=== PATIENT | female | born 1960 | race Two or more races ===

== ENCOUNTER 2016-12-11 01:00 | Emergency (ER) | payer BC, OTHER ==
[2016-12-11 02:14] VITALS: TEMP 98.1; BMI 31.5
--- NOTE | 2016-12-11 02:18 | EDPRACDOC ---
- General Information Chief Complaint: Abdominal Pain Stated Complaint: SHOB Time Seen by Provider: 12/11/16 01:14 Mode Of Arrival: Car Home Medications: Home Medications Hydrochlorothiazide 25 mg PO DAILY 02/25/15 Pregabalin [Lyrica] 150 mg PO TID 05/30/16 Enoxaparin Sodium [Lovenox] 80 mg SQ BID 06/15/16 Lidocaine/Prilocaine [Lidocaine-Prilocaine Cream] 30 gm TP DIR PRN 06/15/16 Lisinopril [Prinivil] 10 mg PO DAILY 06/15/16 Rosuvastatin Calcium [Crestor] 10 mg PO DAILY 06/15/16 Aspirin 325 mg PO DAILYWM #60 tablet 06/16/16 Insulin Glargine [Lantus Pen] 46 units SQ HS #1 pen 06/16/16 Insulin Lispro [Humalog] 13 units SQ .TID BEFORE MEALS #1 vial 06/16/16 MetFORMIN (Immediate Release) [GLUCOPHAGE Immed Release] 1,000 mg PO BID(TANYA) # 60 tablet 06/16/16 Metoprolol Tartrate [Lopressor] 25 mg PO BID #60 tablet 06/16/16 POTASSIUM CHLORIDE Tablet [K-DUR 20 mEq Tablet*] 40 meq PO DAILYWM #60 tab.er.prt 06/16/16 Furosemide [Lasix] 40 mg PO DAILY #10 tablet 12/11/16 POTASSIUM CHLORIDE Tablet [Klor-Con M20] 20 meq PO DAILY #30 tab 12/11/16 Allergies/Adverse Reactions: Allergies Allergy/AdvReac Type Severity Reaction Status Date / Time No Known Allergies Allergy Verified 12/11/16 02:19 - History 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 SIGNIFICANT SHORTNESS OF BREATH 5 6 DAYS BUT ABRUPTLY WORSENED THIS EVENING. HER COUGH HAS BEEN NONPRODUCTIVE SHE HAS HAD NO FEVER CHILLS NO WEIGHT GAIN NO SWELLING IN HER LEGS. SOME VAGUE CHEST PAIN SUBSTERNAL WELL. SHORTNESS OF BREATH IS AGGRAVATED BY LYING DOWN FLAT AND SHE IS AWAKENING AT NIGHT OUT BREATH WELL. SHE DOES NOT WEIGH HERSELF. HAS HISTORY OF PULMONARY EMBOLISM WAS TAKEN OFF ALL OF ANTICOAGULANTS LAST MONTH. HAS HISTORY OF LYMPHOMA LAST CHEMOTHERAPY 1 YEAR AGO CURRENTLY IN REMISSION. : No ED Past Medical History - History Reviewed Yes Nurses notes reviewed and agree except as marked - Patient Medical History Cardiac History: Reports: Coronary Artery Disease, Hypertension, Hypercholesterolemia Respiratory History: Reports: Pulmonary Embolism Musculoskeletal History: Reports: Arthritis Psychological History: Reports: Anxiety Systemic History: Reports: Cancer (HODGKIN'S LYMPHOMA WITH NODULAR SCLEROSIS), Diabetes, Hypothyroidism Additional Past Medical History: NEUROPATHY (MRIS HAVE BEEN DONE WHICH RULED OUT PATHOLOGY). THOUGHT TO BE DUE TO DIABETES AND DECONDITIONING. Surgical History: Reports: Other (CSXN, PORT PLACEMENT, BONE MARROW TRANSPLANT, LYMPH NODE BX). Denies: Hysterectomy - Family Medical History Reports: Hypertension, Diabetes - Social Medical History Smoking Status: Never smoker ETOH: None Substance Abuse: None Lives With: Family Lives In: Home EDM Review of Systems - Review of Systems ROS Negative Except as Marked: Yes All systems reviewed and were negative except as marked - Physical Exam Constitutional: Alert, Restless, Other Oriented to: Time, Person, Place Last recorded Vital Signs: Last Vital Signs Temp 98.1 F 12/11/16 01:05 Pulse 88 12/11/16 05:20 Resp 18 12/11/16 05:20 BP 164/84 12/11/16 05:20 Pulse Ox 96 12/11/16 05:20 Oxygen Pulse Oxygen Saturation 96 O2 Device Room Air Oxygen Flow Rate Fraction of Inspired Oxygen ( FIO2) - HEENT Head: Normal Oropharynx: Normal. negative: Membranes Dry Nose: No Symptoms Reported Neck: Normal. negative: Edema, Limited ROM, Lymphadenopathy, Meningeal Signs - Respiratory/Cardiovascular Respiratory: Diminished, Tachypnea. negative: Accessory Muscle Use, Rales, Retractions, Rhonchi, Wheezes Cardiovascular: Tachycardia - GI Auscultation: Normal Palpation: Normal Tenderness: Non tender Banegas's Sign: Negative - Bladder: Normal - Integumentary Skin: Normal - Neurologic Memory Impaired: Normal Motor Function: Normal Mood Description: Anxious Thought: Coherent Perception: Normal ED Procedures - Ultrasound: Heart / Aorta Indication: Suspected Effusion Cardiac Findings: Normal, Other (LEFT VENTRICULAR CONTRACTILITY APPEARS TO BE GROSSLY DECREASED.). negative: Pericardial Fluid, Free Fluid, RV Diastolic Collapse - Re-evaluation Re-evaluation 1 Re-evaluation Time: 03:55 (AMBULATING WITHOUT DIFFICULTY, MILD TO MOD DYSPNEA) Re-evaluation 3 Re-evaluation Time: 05:49 (PATIENT IS FEELING MUCH BETTER.) NEW ONSET CONGESTIVE HEART FAILURE. ASSOCIATED WITH MARKED HYPERTENSION. PATIENT CARE OFFERED AND RECOMMENDED TO PATIENT AND FAMILY. HOWEVER THEY HAD JUST RETURNED FROM [place] THEY ARE FATIGUED IN AND HE JUST WANTED GO HOME WITH THIS TIME. PATIENT HAS SCHEDULED ECHO TODAY AT [facility]. THIS IS HAVE ROUTINE FOLLOW- UP FOR PERICARDIAL EFFUSION. SHE ALSO HAS A PRIMARY CARE PHYSICIAN (WHICH IS IN [facility]) WHICH SHE WILL BE ABLE TO SEE IN THE NEXT 1-2 DAYS WELL. PATIENT REQUEST OUTPATIENT MANAGEMENT SHE IS VERY COMPLIANT AND HAS EXCELLENT RESOURCES AND SUPPORT OUTPATIENT REGIMEN APPEARS REASONABLE. - Results 12/11/16 02:00 12/11/16 02:00 WBC 5.2 xk/uL (3.8-10.8) 12/11/16 02:00 RBC 4.19 xM/uL (4.20-5.40) L 12/11/16 02:00 Hgb 11.0 g/dL (12.0-16.0) L 12/11/16 02:00 Hct 34.5 % (36-47) L 12/11/16 02:00 MCV 82 fL (81-99) 12/11/16 02:00 MCH 26.3 pg (27-32) L 12/11/16 02:00 MCHC 32.0 g/dl (33-36) L 12/11/16 02:00 RDW 18.6 % (11.5-14.5) H 12/11/16 02:00 Plt Count 233 xk/uL (130-400) 12/11/16 02:00 MPV 8.0 fL (7.4-10.4) 12/11/16 02:00 Neut % (Auto) 67.2 % (45-76) 12/11/16 02:00 Lymph % (Auto) 21.7 % (17-44) 12/11/16 02:00 [place] % (Auto) 6.6 % (3-10) 12/11/16 02:00 Eos % (Auto) 3.4 % (0-5) 12/11/16 02:00 Baso % (Auto) 1.1 % (0-2) 12/11/16 02:00 Absolute Neuts (auto) 3.48 xk/uL (1.7-8.2) 12/11/16 02:00 Absolute Lymphs (auto) 1.09 xk/uL (0.65-4.75) 12/11/16 02:00 PT 10.1 SEC (9.2-11.2) 12/11/16 02:00 INR 1.0 12/11/16 02:00 APTT 21.9 SEC (22-35) L 12/11/16 02:00 D-Dimer Quant (PE/DVT) 691 ng/mL (<500) H 12/11/16 02:00 Sodium 140 mEq/L (137-146) 12/11/16 02:00 Potassium 3.6 mEq/L (3.5-5.1) 12/11/16 02:00 Chloride 106 mEq/L (98-107) 12/11/16 02:00 Carbon Dioxide 22 mMOL/L (22-33) 12/11/16 02:00 Anion Gap 16 mEq/L (8-16) 12/11/16 02:00 BUN 16 MG/DL (7-17) 12/11/16 02:00 Creatinine 0.60 MG/DL (0.52-1.04) 12/11/16 02:00 Estimated GFR (MDRD) > 60 mL/min (>=60) 12/11/16 02:00 Glucose 166 MG/DL (70-99) H 12/11/16 02:00 Calculated Osmolality 274 MOs/Kg (270-290) 12/11/16 02:00 Lactic Acid 2.0 mEq/L (0.7-2.1) 12/11/16 02:00 Calcium 9.2 MG/DL (8.4-10.2) 12/11/16 02:00 Corrected Calcium 9.3 MG/DL (8.4-10.2) 12/11/16 02:00 Total Bilirubin 0.7 MG/DL (0.2-1.3) 12/11/16 02:00 AST 27 IU/L (14-36) 12/11/16 02:00 ALT 35 IU/L (9-52) 12/11/16 02:00 Alkaline Phosphatase 111 IU/L (38-126) 12/11/16 02:00 Troponin I < 0.01 ng/mL (<.04) 12/11/16 02:00 Edb-V-Dpbcjshwjdr Pept 891 pg/mL (0-900) 12/11/16 02:00 Total Protein 7.3 G/DL (6.3-8.2) 12/11/16 02:00 Albumin 3.9 G/DL (3.5-5.0) 12/11/16 02:00 Lipase 67 U/L (23-300) 12/11/16 02:00 Urine Color Pale yellow 12/11/16 01:20 Urine Clarity Clear 12/11/16 01:20 Urine pH 5.0 (5.0-8.0) 12/11/16 01:20 Ur Specific Cost 1.005 (1.003-1.035) 12/11/16 01:20 Urine Protein Neg (NEG/TRACE) 12/11/16 01:20 Urine Glucose (UA) Neg (NEGATIVE) 12/11/16 01:20 Urine Ketones Neg (NEGATIVE) 12/11/16 01:20 Urine Occult Blood Neg (NEG/TRACE) 12/11/16 01:20 Urine Nitrite Neg (NEGATIVE) 12/11/16 01:20 Urine Bilirubin Neg (NEGATIVE) 12/11/16 01:20 Urine Urobilinogen <2.0 MG/DL (0-1) 12/11/16 01:20 Ur Leukocyte Esterase Trace (NEGATIVE) H 12/11/16 01:20 Urine WBC 5-10 (0-5) H 12/11/16 01:20 Ur Epithelial Cells 2+ 12/11/16 01:20 Urine Bacteria Few (NEG/FEW) 12/11/16 01:20 Lab Results 12/11/16 12/11/16 12/11/16 02:00 02:00 02:00 WBC 5.2 RBC 4.19 L Hgb 11.0 L Hct 34.5 L MCV 82 MCH 26.3 L MCHC 32.0 L RDW 18.6 H Plt Count 233 MPV 8.0 Neut % (Auto) 67.2 Lymph % (Auto) 21.7 [place] % (Auto) 6.6 Eos % (Auto) 3.4 Baso % (Auto) 1.1 Absolute Neuts (auto) 3.48 Absolute Lymphs (auto) 1.09 PT 10.1 INR 1.0 APTT 21.9 L D-Dimer Quant (PE/DVT) 691 H Sodium Potassium Chloride Carbon Dioxide Anion Gap BUN Creatinine Estimated GFR (MDRD) Glucose Calculated Osmolality Lactic Acid Calcium Corrected Calcium Total Bilirubin AST ALT Alkaline Phosphatase Troponin I Vil-I-Mfumsacdftc Pept Total Protein Albumin Lipase Urine Color Urine Clarity Urine pH Ur Specific Cost Urine Protein Urine Glucose (UA) Urine Ketones Urine Occult Blood Urine Nitrite Urine Bilirubin Urine Urobilinogen Ur Leukocyte Esterase Urine WBC Ur Epithelial Cells Urine Bacteria 12/11/16 12/11/16 12/11/16 02:00 02:00 01:20 WBC RBC Hgb Hct MCV MCH MCHC RDW Plt Count MPV Neut % (Auto) Lymph % (Auto) [place] % (Auto) Eos % (Auto) Baso % (Auto) Absolute Neuts (auto) Absolute Lymphs (auto) PT INR APTT D-Dimer Quant (PE/DVT) Sodium 140 Potassium 3.6 Chloride 106 Carbon Dioxide 22 Anion Gap 16 BUN 16 Creatinine 0.60 Estimated GFR (MDRD) > 60 Glucose 166 H Calculated Osmolality 274 Lactic Acid 2.0 Calcium 9.2 Corrected Calcium 9.3 Total Bilirubin 0.7 AST 27 ALT 35 Alkaline Phosphatase 111 Troponin I < 0.01 Aho-X-Hjtpwmhujhk Pept 891 Total Protein 7.3 Albumin 3.9 Lipase 67 Urine Color Pale yellow Urine Clarity Clear Urine pH 5.0 Ur Specific Cost 1.005 Urine Protein Neg Urine Glucose (UA) Neg Urine Ketones Neg Urine Occult Blood Neg Urine Nitrite Neg Urine Bilirubin Neg Urine Urobilinogen <2.0 Ur Leukocyte Esterase Trace H Urine WBC 5-10 H Ur Epithelial Cells 2+ Urine Bacteria Few - EKG EKG #1 EKG Time: 02:25 -: Yes EKG interpreted by me Rate: bpm: 120 [place]: Normal Rhythm: ST Block: None Hypertrophy: None ST: Nonsp - Departure Condition: Stable Final Diagnosis: Acute decompensated heart failure, Hypertensive emergency Instructions: *Heart Failure (Activity, Diet, Worsening Symptoms, Weight Monitoring)(ED), Acute Abdominal Pain (ED), Chronic Hypertension (ED) Education/Counseling Given To: Patient, Family Member Education/Counseling Given Regarding: Diagnosis, Treatment, Prognosis Referrals: None,No Provider [Primary Care Provider] - One Week Prescriptions: Furosemide [Lasix] 40 mg PO DAILY #10 tablet POTASSIUM CHLORIDE Tablet [Klor-Con M20] 20 meq PO DAILY #30 tab Additional Instructions: HAVE ECHOCARDIOGRAM PERFORMED AT [facility] TODAY SCHEDULED. MAKE CERTAIN TO SEE A GENERAL ADJUSTER OR YOUR PRIMARY CARE DOCTOR IN THE NEXT 4-5 DAYS. WEIGHT YOURSELF EVERY DAY 1ST THING IN THE MORNING RECORD THIS IN A JOURNAL. TAKE THIS TO YOUR PROVIDER/DOCTOR'S APPOINTMENT.
[2016-12-11 02:28] LABS: AUTOMATED BASOPHIL 1.1 % (0-2); AUTOMATED EOSINOPHIL 3.4 % (0-5); AUTOMATED LYMPH 21.7 % (17-44); AUTOMATED MONOCYTE 6.6 % (3-10); AUTOMATED NEUTROPHIL 67.2 % (45-76)
[2016-12-11] MEDS ORDERED: FENTANYL 100 MCG/2 ML VIAL IV STA (02:28)
[2016-12-11 02:33] LABS: PARTIAL THROMB. TIME 21.9 SEC (22-35)
[2016-12-11 02:42] LABS: BLOOD UREA NITROGEN 16 MG/DL (7-17); CALC CORRECTED 9.3 MG/DL (8.4-10.2); CALCIUM 9.2 MG/DL (8.4-10.2); CALCULATED OSMOLALITY 274 MOs/Kg (270-290); CHLORIDE 106 mEq/L (98-107); GLUCOSE 166 MG/DL (70-99); SODIUM LEVEL 140 mEq/L (137-146); TOTAL PROTEIN 7.3 G/DL (6.3-8.2)
[2016-12-11 03:12] LABS: LEUKOCYTES/URINE TRACE (NEGATIVE); NITRITE/URINE NEG (NEGATIVE); URINE OCCULT BLOOD NEG (NEG/TRACE)
[2016-12-11] MEDS ORDERED: NITROGLYCERINE 2 % OINTMENT PACK TOP ONE (03:19)
--- NOTE | 2016-12-11 03:23 | DIRPT ---
CLINICAL DATA: Chest pain, presumed cardiac. Cough and shortness of breath for 5 days. EXAM: PORTABLE CHEST 1 VIEW COMPARISON: Radiograph 06/15/2016, CT 05/30/2016 FINDINGS: Evaluation limited due to technique with underpenetration. Left chest port remains in place, tip in the SVC. Development of bilateral alveolar opacities most consistent pulmonary edema. Cardiomegaly is unchanged. No evidence of large pleural effusion, pneumothorax or focal airspace disease. Surgical clips in the right axilla. IMPRESSION: New pulmonary edema. Cardiomegaly is stable. Consider PA and lateral views when patient is able. Electronically Signed By: Diane Paulino M.D. On: 12/11/2016 03:20
[2016-12-11] MEDS ORDERED: FUROSEMIDE 40 MG/4 ML VIAL IV ONE (04:08)
[2016-12-11 06:28] VITALS: BP 137/79; PULSE 68
== END 2016-12-11 06:31 | disposition home or self-care (01) ==
LOC: ED 01:00
DX: I50.9 Heart failure, unspecified (principal); I16.1 Hypertensive emergency; I10 Essential (primary) hypertension
CPT/HCPCS: 36415; 71010; 80053; 81001; 83605; 83690; 83880; 84484; 85025; 85379; 85610; 85730; 93005; 96374; 96375; 99285; J1642; J1940; J3010; J3490

== ENCOUNTER 2016-12-15 07:46 | Inpatient (IN) | payer BC ==
--- NOTE | 2016-12-15 08:16 | EDPRACDOC ---
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 Mode Of Arrival: Ambulance Home Medications: Home Medications Hydrochlorothiazide 25 mg PO DAILY 02/25/15 Pregabalin [Lyrica] 150 mg PO TID 05/30/16 Enoxaparin Sodium [Lovenox] 80 mg SQ BID 06/15/16 Lidocaine/Prilocaine [Lidocaine-Prilocaine Cream] 30 gm TP DIR PRN 06/15/16 Lisinopril [Prinivil] 10 mg PO DAILY 06/15/16 Rosuvastatin Calcium [Crestor] 10 mg PO DAILY 06/15/16 Aspirin 325 mg PO DAILYWM #60 tablet 06/16/16 Insulin Glargine [Lantus Pen] 46 units SQ HS #1 pen 06/16/16 Insulin Lispro [Humalog] 13 units SQ .TID BEFORE MEALS #1 vial 06/16/16 MetFORMIN (Immediate Release) [GLUCOPHAGE Immed Release] 1,000 mg PO BID(TANYA) # 60 tablet 06/16/16 Metoprolol Tartrate [Lopressor] 25 mg PO BID #60 tablet 06/16/16 POTASSIUM CHLORIDE Tablet [K-DUR 20 mEq Tablet*] 40 meq PO DAILYWM #60 tab.er.prt 06/16/16 Furosemide [Lasix] 40 mg PO DAILY #10 tablet 12/11/16 POTASSIUM CHLORIDE Tablet [Klor-Con M20] 20 meq PO DAILY #30 tab 12/11/16 Allergies/Adverse Reactions: Allergies Allergy/AdvReac Type Severity Reaction Status Date / Time No Known Allergies Allergy Verified 12/11/16 02:19 - Treatment Prior to ED Arrival 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 Denies: Depression Systemic History: Reports: Cancer (HODGKIN'S LYMPHOMA WITH NODULAR SCLEROSIS), Diabetes, Hypothyroidism Additional Past Medical History: NEUROPATHY (MRIS HAVE BEEN DONE WHICH RULED OUT PATHOLOGY). THOUGHT TO BE DUE TO DIABETES AND DECONDITIONING. Surgical History: Reports: Other (CSXN, PORT PLACEMENT, BONE MARROW TRANSPLANT, LYMPH NODE BX). Denies: Hysterectomy - Family Medical History Reports: Hypertension, Diabetes - Social Medical History Smoking Status: Never smoker - Physical Exam Last recorded Vital Signs: Last Vital Signs Temp 98.1 F 12/15/16 07:53 Pulse 117 12/15/16 07:53 Resp 32 H 12/15/16 07:53 BP 168/96 12/15/16 07:53 Pulse Ox 89 L 12/15/16 07:53 Oxygen Pulse Oxygen Saturation 89 O2 Device Room Air Oxygen Flow Rate Fraction of Inspired Oxygen ( FIO2)
[2016-12-15 08:17] LABS: ABG Draw Site Left Radial; ABG Draw Tech SI; ALLEN'S TEST PASS; BEb 1.8 (+/- 2); TCO2 26.8 MMOL/L (23-27)
--- NOTE | 2016-12-15 08:20 | EDPRACDOC ---
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: Ambulance Home Medications: Home Medications Pregabalin [Lyrica] 150 mg PO TID 05/30/16 Lisinopril [Prinivil] 10 mg PO DAILY 06/15/16 Insulin Glargine [Lantus Pen] 46 units SQ HS #1 pen 06/16/16 Insulin Lispro [Humalog] 13 units SQ .TID BEFORE MEALS #1 vial 06/16/16 MetFORMIN (Immediate Release) [GLUCOPHAGE Immed Release] 1,000 mg PO BID(TANYA) # 60 tablet 06/16/16 Furosemide [Lasix] 40 mg PO DAILY #10 tablet 12/11/16 POTASSIUM CHLORIDE Tablet [Klor-Con M20] 20 meq PO DAILY #30 tab 12/11/16 Levothyroxine [Synthroid, Levoxyl] 75 mcg PO DAILY 12/15/16 Allergies/Adverse Reactions: Allergies Allergy/AdvReac Type Severity Reaction Status Date / Time No Known Allergies Allergy Verified 12/15/16 08:38 - History of Present Illness Onset: WEEKS HPI: 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 Shortness of Breath: Moderate Cough: Reports: Non-productive SOB Worsens with: Reports: Lying Flat, PND, [place], Orthopnea SOB Improves with: Reports: Sitting up Associated Signs and symptoms: Denies: Fever, Nasal Symptoms, Vomiting, Myalgia Other History: ECHO DONE AT [place] LAST WEEK TO ASSURE THAT PRIOR PERICARDIAL EFFUSION HAD RESOLVED. I SAW PATIENT APPROXIMATELY 4 DAYS AGO FOR SIMILAR SYMPTOMS NOT SEVERE THEY ARE CURRENTLY. PLACED HER ON LASIX AND POTASSIUM. SHE IS 1ST TO HAVE FOLLOW-UP IS UNCLEAR WHETHER SHE DID HAVE FOLLOW-UP HER NOT BUT TODAY SHE CLEARLY LOOKS WORSE THAN SHE DID AT THAT TIME. 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 Denies: Depression Systemic History: Reports: Cancer (HODGKIN'S LYMPHOMA WITH NODULAR SCLEROSIS), Diabetes, Hypothyroidism Additional Past Medical History: NEUROPATHY (MRIS HAVE BEEN DONE WHICH RULED OUT PATHOLOGY). THOUGHT TO BE DUE TO DIABETES AND DECONDITIONING. Surgical History: Reports: Other (CSXN, PORT PLACEMENT, BONE MARROW TRANSPLANT, LYMPH NODE BX). Denies: Hysterectomy - Family Medical History Reports: Hypertension, Diabetes - Social Medical History Smoking Status: Never smoker EDM Review of Systems - Review of Systems ROS Negative Except as Marked: Yes All systems reviewed and were negative except as marked - Physical Exam Constitutional: Alert, Restless Oriented to: Time, Person, Place Last recorded Vital Signs: Last Vital Signs Temp 98.1 F 12/15/16 07:53 Pulse 117 12/15/16 07:53 Resp 32 H 12/15/16 07:53 BP 168/96 12/15/16 07:53 Pulse Ox 89 L 12/15/16 07:53 Oxygen Pulse Oxygen Saturation 89 O2 Device Room Air Oxygen Flow Rate Fraction of Inspired Oxygen ( FIO2) - HEENT Head: Normal Eye Exam: Normal. negative: Pale Conjunctiva, Scleral Icterus Oropharynx: negative: Membranes Dry Nose: No Symptoms Reported Neck: Normal - Respiratory/Cardiovascular Respiratory: Accessory Muscle Use, Diminished, Tachypnea, Other (SITTING BOLT UPRIGHT) Cardiovascular: Tachycardia. negative: Diastolic murmur, Systolic murmur - GI Auscultation: Normal Palpation: Normal Tenderness: Non tender - Musculoskeletal Back: Normal Extremities: Pedal Edema (2+ BILATERAL LOWER EXTREMITIES TO THE LEVEL OF THE KNEE.). negative: Clubbing, Cyanosis - Integumentary Skin: Clammy - Neurologic Memory Impaired: Normal Mood Description: Anxious Thought: Coherent Perception: Normal ED SOB MDM - Results Result Diagrams: 12/15/16 08:39 12/15/16 08:39 Results: Puncture Site Left radial 12/15/16 08:10 pH 7.450 pH UNITS (7.35-7.45) 12/15/16 08:10 pCO2 37.0 mmHg (35-45) 12/15/16 08:10 pO2 59.0 mmHg (80-100) L 12/15/16 08:10 HCO3 25.7 MMOL/L (22-26) 12/15/16 08:10 Total CO2 26.8 MMOL/L (23-27) 12/15/16 08:10 Base Excess 1.8 (+/- 2) 12/15/16 08:10 FiO2 % 21% 12/15/16 08:10 Specimen Drawn By Si 12/15/16 08:10 Lab Results 12/15/16 08:10 Puncture Site Left radial pH 7.450 pCO2 37.0 pO2 59.0 L HCO3 25.7 Total CO2 26.8 Base Excess 1.8 FiO2 % 21% Specimen Drawn By Si - EKG EKG #1 EKG Time: 08:10 -: Yes EKG interpreted by me Rate: bpm: 112 [place]: Normal Rhythm: ST Block: None Hypertrophy: None ST: Nonsp Comparison: 12/11/16 (NO SIGNIF CHANGE) - Diagnostic Imaging Chest Image interpreted by: Radiologist Diagnostic Imaging Comments: Patient Name: NENA PARIKH LOC: ED : 1960 AGE: 56 Order Date:12/15/16 Date of Service: Report # [id number] Ord Physician: Rebecca Hernandez MD Exam # [id number] Emergency Physician: Rebecca Hernandez MD Exam(s): [id number] RAD/DG CHEST PORTABLE CLINICAL DATA: Respiratory distress. EXAM: PORTABLE CHEST 1 VIEW COMPARISON: 12/11/2016 chest radiograph. FINDINGS: Surgical clips overlie the right axilla. Left internal jugular MediPort terminates in the lower third of the superior vena cava. Low lung volumes. Stable cardiomediastinal silhouette with mild cardiomegaly. No pneumothorax. Possible small left pleural effusion. No appreciable right pleural effusion. There are severe fluffy and linear parahilar opacities throughout both lungs, slightly worsened. IMPRESSION: 1. Stable mild cardiomegaly. Severe fluffy and linear parahilar opacities throughout both lungs, slightly worsened, favor severe pulmonary edema. 2. Possible small left pleural effusion. Electronically Signed By: Camden Andersen M.D. On: 12/15/2016 08:33 Electronically Signed By: Camden Andersen MD Electronically Signed Date/Time: [id number] Dictate Date/Time: 12/15/16 0831 Technologist: Komal Smith By: Juan Jose Transcribed Date/Time: 12/15/16 0833 - Additional Information Additional Information: PATIENT INTOLERANT TO BIPAP DESPITE BENZODIAZEPINE USE. HOWEVER SHE IS ACTUALLY DOING WELL WITH SUPPLEMENTAL OXYGEN. NITROGLYCERIN DRIP DELAYED BECAUSE PATIENT WAS ADVERSE TO STARTING 2ND PERIPHERAL IV. 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 DISCUSSION WITH HER AND HER SIGNIFICANT OTHER BODY OF REGARDING HER CARE, TRANSFER TODAY VIA FEW WAS OFFERED. HOWEVER THEY HAVE DEFERRED THIS I AND PREFER FOR THEIR CARE TO BE DONE AT [facility]. ED Critical Care Note - Critical Care Note Total Time (mins): 35 Comments: Due to the presence of and / or the risk of deterioration, my attendance to this patient required critical care time, including assessment/reassessment, documentation, ordering and interpreting ancillary studies, discussion with ED staff and consultants,patient and family, and excludes time spent on separately billable procedures. 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
[2016-12-15] MEDS ORDERED: FUROSEMIDE 40 MG/4 ML VIAL IV ONE (08:33)
--- NOTE | 2016-12-15 08:35 | DIRPT ---
CLINICAL DATA: Respiratory distress. EXAM: PORTABLE CHEST 1 VIEW COMPARISON: 12/11/2016 chest radiograph. FINDINGS: Surgical clips overlie the right axilla. Left internal jugular MediPort terminates in the lower third of the superior vena cava. Low lung volumes. Stable cardiomediastinal silhouette with mild cardiomegaly. No pneumothorax. Possible small left pleural effusion. No appreciable right pleural effusion. There are severe fluffy and linear parahilar opacities throughout both lungs, slightly worsened. IMPRESSION: 1. Stable mild cardiomegaly. Severe fluffy and linear parahilar opacities throughout both lungs, slightly worsened, favor severe pulmonary edema. 2. Possible small left pleural effusion. Electronically Signed By: Camden Andersen M.D. On: 12/15/2016 08:33
[2016-12-15 08:51] LABS: AUTOMATED BASOPHIL 0.8 % (0-2); AUTOMATED EOSINOPHIL 5.3 % (0-5); AUTOMATED LYMPH 17.1 % (17-44); AUTOMATED MONOCYTE 5.1 % (3-10); AUTOMATED NEUTROPHIL 71.7 % (45-76); MPV 7.7 fL (7.4-10.4)
[2016-12-15] MEDS ORDERED: Nitroglycerin D5W 50,000 MCG/250 ML IVBOT IV SCH (09:00)
[2016-12-15 09:01] LABS: PARTIAL THROMB. TIME 24.7 SEC (22-35)
[2016-12-15 09:06] LABS: BLOOD UREA NITROGEN 12 MG/DL (7-17); CALCIUM 9.4 MG/DL (8.4-10.2); CALCULATED OSMOLALITY 275 MOs/Kg (270-290); CHLORIDE 105 mEq/L (98-107); GLUCOSE 162 MG/DL (70-99); SODIUM LEVEL 141 mEq/L (137-146); TOTAL PROTEIN 7.5 G/DL (6.3-8.2)
[2016-12-15] MEDS ORDERED: LORAZEPAM 2 MG/ML VIAL IV ONE (09:13)
[2016-12-15 09:49] LABS: LEUKOCYTES/URINE NEG (NEGATIVE); NITRITE/URINE NEG (NEGATIVE); RBC/URINE 0-2 (0-5); URINE OCCULT BLOOD NEG (NEG/TRACE)
[2016-12-15 10:16] LABS: CPK TOTAL WITH POSSIBLE MB 107 IU/L (30-134)
[2016-12-15] MEDS ORDERED: GUAIFEN 100 MG-DEXTROMETH 10 MG PER 5 ML PO PRN (10:18)
[2016-12-15] MEDS ORDERED: ONDANSETRON HCL 4 MG/2 ML VIAL IV PRN (10:18)
[2016-12-15] MEDS ORDERED: BENZONATATE 100 MG PERLES PO PRN (10:18)
[2016-12-15] MEDS ORDERED: GLUCOSE (ORAL GEL) 15 GM TUBE PO PRN ×2 (10:18→10:31)
[2016-12-15] MEDS ORDERED: SODIUM CHLORIDE 0.9% 3 ML FLUSH FLUSH PRN (10:18)
[2016-12-15] MEDS ORDERED: GLUCAGON 1 MG VIAL SQ PRN ×2 (10:18→10:31)
[2016-12-15] MEDS ORDERED: NITROGLYCERINE 0.4 MG TAB SL PRN (10:18)
[2016-12-15] MEDS ORDERED: ZOLPIDEM TARTRATE 5 MG TAB PO PRN (10:18)
[2016-12-15] MEDS ORDERED: PROMETHAZINE 25 MG/ML VIAL IV PRN (10:18)
[2016-12-15] MEDS ORDERED: ACETAMINOPHEN 650 MG SUPP PR PRN (10:18)
[2016-12-15] MEDS ORDERED: DEXTROSE 25 GM/50 ML PFS IV PRN ×2 (10:18→10:31)
[2016-12-15] MEDS ORDERED: SIMETHICONE 80 MG TAB PO PRN (10:18)
[2016-12-15] MEDS ORDERED: GLARGINE INSULIN (LANTUS) 100 UNITS/ML PEN SQ SCH (11:00)
[2016-12-15] MEDS ORDERED: SODIUM CHLORIDE 0.9% 3 ML FLUSH FLUSH SCH (11:00)
[2016-12-15] MEDS ORDERED: Pharmacy Order Set Alert SCH (11:00)
--- NOTE | 2016-12-15 12:35 | CAPUECHO ---
INDICATION: HEART FAILURE HEIGHT: 160.0 cm (5 ft 3.0 in) WEIGHT: 80.7 kg (178.0 lbs) BP: 163/83 BSA: 1.571749 m MEASUREMENTS 2D RVIDd: 2.9 cm LVOT Diam: 2.0 cm LA Diam: 4.1 cm EF Biplane: 37.90 % LAESV MOD A4C: 45.4 ml LAESV MOD A2C: 50.4 ml LAESV Index (A-L): 29.33 ml/m M-MODE IVSd: 1.2 cm LVIDd: 5.8 cm LVPWd: 1.2 cm LVIDs: 4.8 cm EF(Teich): 35 % DOPPLER MV E Praveen: 0.00 m/s MV A Praveen: 0.93 m/s LVOT Vmax: 0.98 m/s AV Vmax: 1.19 m/s DORI Vmax, Pt: 2.64 cm FINDINGS ------- Procedure:2D images, m-mode, color and spectral Doppler were obtained and reviewed. ECG rhythm:Sinus rhythm. Study quality:This was a technically adequate study. Left Ventricle:The left ventricle is mildly dilated. There is mild concentric left ventricular hyp ertrophy. There is moderate global hypokinesis of LV . Overall left ventricular systolic functio n is moderately impaired with, an EF between 35 - 40 %. The diastolic filling pattern indicates im paired relaxation. Right Ventricle:The right ventricle is normal in size and function. Left Atrium:Left atrium is mildly dilated by volume. Right Atrium:The right atrium is normal in size and function. Aortic Valve:The aortic valve is trileaflet, and appears structurally normal. No aortic stenosis or regurgitation. Mitral Valve:Normal appearing mitral valve. There is trace mitral regurgitation. Tricuspid Valve:The tricuspid valve appears structurally normal. Trace tricuspid regurgitation pre sent. Pulmonic Valve:The pulmonic valve is normal. Trace/mild (physiologic) pulmonic regurgitation. Aorta:The aortic root, ascending aorta and aortic arch appear normal. IVC:Normal inferior vena cava with normal inspiratory collapse. Pericardium:The pericardium is normal. There is no pericardial effusion. CONCLUSIONS 1. The left ventricle is mildly dilated. 2. There is mild concentric left ventricular hypertrophy. 3. There is moderate global hypokinesis of LV . 4. Overall left ventricular systolic function is moderately impaired with, an EF between 35 - 40 %. 5. Left atrium is mildly dilated by volume. Electronically Signed By: Jeffrey Alicia MD, [facility] Electronically Signed On: 12:34:15
[2016-12-15] MEDS: REGULAR INSULIN 100 UNITS/ML - 3 ML VIAL SQ SCH ×3 (15:39→21:50)
[2016-12-15] MEDS: FUROSEMIDE 40 MG/4 ML VIAL IV SCH ×2 (15:45→21:51)
[2016-12-15] MEDS: PREGABALIN 50 MG CAP PO SCH ×2 (15:45→21:50)
[2016-12-15] MEDS: NITROGLYCERINE 2 % OINTMENT PACK TOP SCH ×3 (15:45→23:14)
[2016-12-15] MEDS: CARVEDILOL 6.25 MG TAB PO SCH ×2 (15:45→21:50)
[2016-12-15] MEDS: POTASSIUM CHLORIDE 20 MEQ TAB PO SCH (15:46)
[2016-12-15] MEDS ORDERED: REGULAR INSULIN 100 UNITS/ML - 3 ML VIAL SQ SCH (17:00)
[2016-12-15] MEDS ORDERED: Vaccine Screening Complete SCH (18:00)
--- NOTE | 2016-12-15 18:26 | HISTPHYS ---
- Chief Complaint SHORTNESS OF BREATH - History of Present Illness Mrs. Christopher Lerma is a 56 year old Amharic-speaking woman from [place] who is usually cared for by Dr. Shankar. She has a history of diabetes, HTN and congestive heart failure and was recently hospitalized for pneumonia before [place]. She gets most of her care at [facility] in [place]. She reports increasing shortness of breath and swelling in her legs that has been getting worse for about two weeks. She was seen in the ED 4 days ago and treated with a dose of IV Lasix and then increased doses of PO Lasix as an outpatient. However, she failed to improve. She believes that this episode began when she ate something she referred to as bitter-root. (Yam? rutabega?) Presently she is hypoxic on room air, and her chest x-ray is consistent with pulmonary edema. Her legs are swollen up to her knees. She was placed on BiPAP in the ED but she was unable to tolerate it and refused to try it again. She is tolerating the venturi-mask. - Medical History Cardiac History: Reports: Hypertension, Congestive Heart Failure Respiratory History: Reports: Cough, Pulmonary Embolism (OFF ANTICOAGULATION AUGUST 2016) GI/ History: Reports: Gastroesophageal Reflux Musculoskeletal History: Reports: Arthritis Systemic History: Reports: Cancer (Non-Hodgkin's Lymphoma - treated with chemotherapy), Anemia, Diabetes, Hypothyroidism Neurological History: Reports: No Significant History Psychological History: Reports: Anxiety. Denies: Depression - Surgical History Reports: Other (CSXN, PORT-a-CATH, BONE MARROW TRANSPLANT, LYMPH NODE BX). Denies: Hysterectomy - Medictions/Allergies Allergies No Known Allergies Allergy (Verified 12/15/16 08:38) Current Medication List: Reviewed Home Medications Pregabalin [Lyrica] 150 mg PO TID 05/30/16 Lisinopril [Prinivil] 10 mg PO DAILY 06/15/16 Insulin Glargine [Lantus Pen] 46 units SQ HS #1 pen 06/16/16 Insulin Lispro [Humalog] 13 units SQ .TID BEFORE MEALS #1 vial 06/16/16 MetFORMIN (Immediate Release) [GLUCOPHAGE Immed Release] 1,000 mg PO BID(TANYA) # 60 tablet 06/16/16 Furosemide [Lasix] 40 mg PO DAILY #10 tablet 12/11/16 POTASSIUM CHLORIDE Tablet [Klor-Con M20] 20 meq PO DAILY #30 tab 12/11/16 Levothyroxine [Synthroid, Levoxyl] 75 mcg PO DAILY 12/15/16 - Family History Reports: Hypertension, Diabetes - Social History Travel Outside of [place] in the Last 3 Months?: No Lives: With Family Smoking Status: Never smoker Social History: Denies: Alcohol Use, Substance Use Disorder - Review of Systems Constitutional: Fatigue, Weakness, Weight gain (uncertain how much). negative: Chills, Fever Eyes: No Symptoms Reported, Other (retinal treatments with laser) Ears: No Symptoms Reported Nose: Congestion. negative: Bleeding, Discharge, Deformity Mouth: Dry Mouth, Poor Dentition Throat/Neck: Hoarseness, Snoring Respiratory: Barky Cough, Shortness of Breath, Wheezing, Dyspnea. negative: Hemoptysis, Asthma, Bronchitis Cardiovascular: Edema, Orthopnea, Palpitations, PND. negative: Chest Pain, Cyanosis Gastrointestinal: Nausea, Constipation, Heartburn. negative: Vomiting, Abdominal Pain Genitourinary: Frequency, Nocturia, Urgency to urinate, Postmenopause, Other (s/ p hysterectomy) Neurological: Dizziness, Numbness, Weakness Musculoskeletal:: Osteoarthritis, Stiffness, Weakness, Swelling (legs) Integumentary: No Symptoms Reported Allergic/Immunologic: No Symptoms Reported Hematologic: Anemia Endocrine: Weight Gain, Polyuria, Diabetes Psychiatric: Anxiety, Insomnia - Physical Exam Vital Signs: Initial Vitals Temperature 98.1 F 12/15/16 07:53 Pulse Rate 117 12/15/16 07:53 Respiratory Rate 32 H 12/15/16 07:53 Blood Pressure 168/96 12/15/16 07:53 Pulse Oxygen Saturation 89 L 12/15/16 07:53 Constitutional: Alert, Distress (espiratory) Oriented to: Time, Person, Place - HEENT Head: Normal Eye: Normal (PERRL: EOMI) Oropharynx: Membranes Dry. negative: Drooling, Exudate, Red Tympanic Membrane: Normal ENT EAC: Normal TMJ: Normal Nose: negative: Bleeding, Congestion, Discharge Respiratory: Diminished, Rales (lower 2/3 of lungs bilaterally), Tachypnea, Wheezes Cardiovascular: Tachycardia (regular rhythm and rate). negative: Diastolic murmur, Systolic murmur, Gallop/S4 - GI Auscultation: Normal Palpation: Normal (soft, obese, no mass or fluid wave, + presacral edema) Tenderness: Non tender Banegas's Sign: Negative Rectal Exam: Deferred, Heme negative stool, Rectal Tone (normal). negative: Mass - Musculoskeletal Back: Normal, No Palpable Step-off Extremities: Normal, Edema (3+ to knees bilaterally). negative: Clubbing, Cyanosis Spine: full range of motion, normal alignment, normal inspection - Integumentary Skin: Warm, Dry Lymphatics: Normal. negative: Adenopathy - Neurologic Memory Impaired: Normal Motor Function: Normal Cranial Nerve: Normal Cerebellar: Normal Mood Description: Normal, Appropriate Thought: Coherent Perception: Normal - Foot Exam Foot Prick Test: Abnomal Right, Abnormal Left Babinski Reflex Response: Absent Bilateral Achilles Tendon Reflex Response: Normal Skin/Nail Foot Exam: Dry, Fissure/Cracks, Callus, Thickened nails Vascular Foot exam: Hair Loss, Edema, Cold Skin, Dorsalis Pedis (diminished), Posterior Tibial (diminished) Foot Exam: Swelling, Other (onychomycosis) - Focused CV Perfusion Exam Vital Signs: Last Vital Signs Temp 97.8 F 12/15/16 17:00 Pulse 86 12/15/16 18:18 Resp 18 12/15/16 17:00 BP 94/68 L 12/15/16 18:00 Pulse Ox 94 12/15/16 17:00 - Lab Results Laboratory Tests 12/15/16 12/15/16 12/15/16 08:10 08:39 08:39 WBC 4.8 Hgb 10.7 L Hct 33.6 L Plt Count 239 Neut % (Auto) 71.7 Lymph % (Auto) 17.1 [place] % (Auto) 5.1 Eos % (Auto) 5.3 H Baso % (Auto) 0.8 PT INR APTT D-Dimer Quant (PE/DVT) pH 7.450 pCO2 37.0 pO2 59.0 L HCO3 25.7 Total CO2 26.8 Base Excess 1.8 FiO2 % 21% Sodium 141 Potassium 3.7 Chloride 105 Carbon Dioxide 24 Anion Gap 16 BUN 12 Creatinine 0.60 Estimated GFR (MDRD) > 60 Glucose 162 H POC Capillary Glucose Calculated Osmolality 275 Lactic Acid Calcium 9.4 Total Bilirubin 0.6 AST 33 ALT 42 Alkaline Phosphatase 98 Creatine Kinase 107 Troponin I < 0.01 Jju-J-Dvaswfsetfw Pept 1610 H Total Protein 7.5 Albumin 4.0 Urine pH Ur Specific [place] Urine Protein Urine Glucose (UA) Urine Ketones Urine Nitrite Urine RBC Urine WBC Ur Epithelial Cells Urine Bacteria Urine Mucus 12/15/16 12/15/16 12/15/16 08:39 08:39 08:39 WBC Hgb Hct Plt Count Neut % (Auto) Lymph % (Auto) [place] % (Auto) Eos % (Auto) Baso % (Auto) PT 10.0 INR 1.0 APTT 24.7 D-Dimer Quant (PE/DVT) 937 H pH pCO2 pO2 HCO3 Total CO2 Base Excess FiO2 % Sodium Potassium Chloride Carbon Dioxide Anion Gap BUN Creatinine Estimated GFR (MDRD) Glucose POC Capillary Glucose Calculated Osmolality Lactic Acid 2.2 H Calcium Total Bilirubin AST ALT Alkaline Phosphatase Creatine Kinase Troponin I Afi-K-Mxualerbzes Pept Total Protein Albumin Urine pH Ur Specific [place] Urine Protein Urine Glucose (UA) Urine Ketones Urine Nitrite Urine RBC Urine WBC Ur Epithelial Cells Urine Bacteria Urine Mucus 12/15/16 12/15/16 12/15/16 09:30 12:47 17:22 WBC Hgb Hct Plt Count Neut % (Auto) Lymph % (Auto) [place] % (Auto) Eos % (Auto) Baso % (Auto) PT INR APTT D-Dimer Quant (PE/DVT) pH pCO2 pO2 HCO3 Total CO2 Base Excess FiO2 % Sodium Potassium Chloride Carbon Dioxide Anion Gap BUN Creatinine Estimated GFR (MDRD) Glucose POC Capillary Glucose 124 H Calculated Osmolality Lactic Acid 2.2 H Calcium Total Bilirubin AST ALT Alkaline Phosphatase Creatine Kinase Troponin I Tbp-I-Mudiowjooex Pept Total Protein Albumin Urine pH 6.0 Ur Specific [place] 1.010 Urine Protein Neg Urine Glucose (UA) Neg Urine Ketones Neg Urine Nitrite Neg Urine RBC 0-2 Urine WBC 2-5 Ur Epithelial Cells 1+ Urine Bacteria Few Urine Mucus Occ - Diagnostic Findings CXR: IMPRESSION: 1. Stable mild cardiomegaly. Severe fluffy and linear parahilar opacities throughout both lungs, slightly worsened, favor severe pulmonary edema. 2. Possible small left pleural effusion. Electronically Signed By: Camden Andersen M.D. On: 12/15/2016 08:33 - Assessment (1) Acute decompensated heart failure I50.9 - HEART FAILURE, UNSPECIFIED Acute Present on Admission: Yes Admit to PCU, monitor on telemetry. Begin fluid restriction, diuresis, and use heart failure order set. Begin beta-west and continue aspirin and statin, STANLEY inhibitor in low dose, and aggressive diuresis. Check current echocardiogram to document EF. (Last known EF was 45% in May of 2016) Monitor daily weight and I & O. (2) Acute respiratory failure with hypoxia J96.01 - ACUTE RESPIRATORY FAILURE WITH HYPOXIA Acute Present on Admission: Yes Provide supplemental oxygen, maintain O2 sats above 92%. (3) Hypertensive urgency I16.0 - HYPERTENSIVE URGENCY Acute Present on Admission: Yes Continue Lisinopril, add carvedilol twice a day. With continued diuresis and topical nitroglycerin this should control heart strain and BP. 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 Otherwise, continue home medications with a reduced bedtime dose of insulin as the patient will be eating less and NPO in the morning. Case Care Discussed with: Patient, Family, Nursing Staff, Resource Management Critical Care: Yes Couseling Time (>50% in counseling/coordination): Yes Code: 291
[2016-12-15] MEDS: SODIUM CHLORIDE 0.9% 3 ML FLUSH FLUSH SCH (18:36)
[2016-12-15] MEDS: GLARGINE INSULIN (LANTUS) 100 UNITS/ML PEN SQ SCH (21:51)
[2016-12-16] MEDS: REGULAR INSULIN 100 UNITS/ML - 3 ML VIAL SQ SCH ×4 (05:13→19:18)
[2016-12-16] MEDS: PREGABALIN 50 MG CAP PO SCH ×3 (05:14→19:16)
[2016-12-16] MEDS: NITROGLYCERINE 2 % OINTMENT PACK TOP SCH ×4 (05:14→17:31)
[2016-12-16] MEDS: FUROSEMIDE 40 MG/4 ML VIAL IV SCH ×3 (05:14→19:18)
[2016-12-16] MEDS: SODIUM CHLORIDE 0.9% 3 ML FLUSH FLUSH SCH ×2 (05:15→16:56)
[2016-12-16 07:29] LABS: MPV 7.7 fL (7.4-10.4)
[2016-12-16 07:43] LABS: BLOOD UREA NITROGEN 16 MG/DL (7-17); CALCIUM 8.9 MG/DL (8.4-10.2); CALCULATED OSMOLALITY 272 MOs/Kg (270-290); CHLORIDE 107 mEq/L (98-107); GLUCOSE 99 MG/DL (70-99); SODIUM LEVEL 141 mEq/L (137-146)
[2016-12-16] MEDS ORDERED: FLU VACCINE (Afluria) 0.5 ML DOSE IM ONE (08:00)
--- NOTE | 2016-12-16 08:11 | DIRPT ---
CLINICAL DATA: Heart failure EXAM: PORTABLE CHEST 1 VIEW COMPARISON: Yesterday FINDINGS: Unchanged cardiomegaly and vascular pedicle widening. There is a donna catheter on the left with tip in stable position. Mild improvement in diffuse interstitial and perihilar airspace opacity. Probable small layering effusion. IMPRESSION: CHF pattern with mild improvement since yesterday. Electronically Signed By: Slick Carpenter M.D. On: 12/16/2016 08:08
[2016-12-16] MEDS: MORPHINE 2 MG/ML INJECTION IV PRN (10:39)
[2016-12-16] MEDS: LISINOPRIL 10 MG TAB PO SCH (10:40)
[2016-12-16] MEDS: CARVEDILOL 6.25 MG TAB PO SCH ×2 (10:40→19:16)
[2016-12-16] MEDS: POTASSIUM CHLORIDE 20 MEQ TAB PO SCH ×2 (10:40→17:29)
[2016-12-16] MEDS: LEVOTHYROXINE 75 MCG (0.075 MG) TAB PO SCH (10:41)
--- NOTE | 2016-12-16 12:12 | GENMEDPROG ---
Chief Complaint: CHF, acute resp failure, M HTN, DM-2 w/ hyperglycemia Currently: Reports: Cough, VEGAS, SOB, Chest Pain. Denies: Wheezing, Ambulating DVT Prophylaxis: Yes - Physical Examination Vital Signs and I&O: Last Vital Signs Temp 97.7 F 12/16/16 11:09 Pulse 100 12/16/16 11:09 Resp 18 12/16/16 11:09 BP 129/71 12/16/16 11:09 Pulse Ox 98 12/16/16 11:09 Oxygen Pulse Oxygen Saturation 98 O2 Device Venturi Mask Oxygen Flow Rate 8 Fraction of Inspired Oxygen ( 35 FIO2) Intake & Output 12/13/16 12/14/16 12/15/16 12/16/16 23:59 23:59 23:59 23:59 Intake Total 144 455 Output Total 1800 Balance 144 -1345 Patient's weight 92.442 kg 93.758 kg General: Alert, Oriented x3, Cooperative, Mild distress, Obese, Weakness HEENT: PERRLA, EOMI, Anicteric Sclera, Mucous membr. moist/pink Neck: Full range of motion, Normal Trachea alignment, Normal inspection, No Masses palpable Lymphatics: Normal. negative: Adenopathy Respiratory: Diminished, Rales (lower 2/3 of lungs bilaterally), Tachypnea, Wheezes Cardiovascular: Regular rate and rhythm, Normal S1, Normal S2, Good Pedal Pulses , LE Edema, PMI Not Lateralized GI: Soft, Non tender, No masses Extremities/Musculoskeletal: Normal pulses, Edema (2+), DJD, FROM Skin: Warm,Dry and Intact, No rashes, No breakdown, No significant lesion Neurological: Normal speech, Strength at 5/5 X4 ext, Normal tone, Cranial nerves 3-12 NL, Drowsy Psych/Mental Status: Appropriate, Normal Affect, Cooperative Lab/DI/Studies Reviewed: Laboratory Tests 06/15/16 12/16/16 12/16/16 16:00 05:11 07:15 WBC Hgb Hct Plt Count Sodium 141 Potassium 3.9 Chloride 107 Carbon Dioxide 24 Anion Gap 14 BUN 16 Creatinine 0.70 Estimated GFR (MDRD) > 60 Glucose 99 POC Capillary Glucose 99 Hemoglobin A1c 11.3 H Calculated Osmolality 272 Calcium 8.9 Magnesium 2.30 Gjt-J-Rwiejnyywea Pept 851 12/16/16 07:15 WBC 4.6 Hgb 9.8 L Hct 30.4 L Plt Count 152 Sodium Potassium Chloride Carbon Dioxide Anion Gap BUN Creatinine Estimated GFR (MDRD) Glucose POC Capillary Glucose Hemoglobin A1c Calculated Osmolality Calcium Magnesium Zph-J-Tiysyqfniql Pept - Assessment (1) Acute decompensated heart failure Acute I50.9 - HEART FAILURE, UNSPECIFIED Comment/Plan: Continue to monitor on telemetry. Continue fluid restriction, diuresis, and use heart failure order set. Continue beta-west and continue aspirin and statin, STANLEY inhibitor in low dose, and aggressive diuresis. Check current echocardiogram to document EF. (Last known EF was 45% in May of 2016) Monitor daily weight and I & O. Patient is improving. (2) Acute respiratory failure with hypoxia Acute J96.01 - ACUTE RESPIRATORY FAILURE WITH HYPOXIA Comment/Plan: Provide supplemental oxygen, has been able to wean from venti mask to [place] already. maintain O2 sats above 92%. (3) Hypertensive urgency Acute I16.0 - HYPERTENSIVE URGENCY Comment/Plan: Continue Lisinopril, add carvedilol twice a day. With continued diuresis and topical nitroglycerin this should control heart strain and BP. 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 Otherwise, continue home medications with a reduced bedtime dose of insulin as the patient will be eating less and NPO in the morning.
[2016-12-16] MEDS: GLARGINE INSULIN (LANTUS) 100 UNITS/ML PEN SQ SCH (19:19)
[2016-12-17] MEDS: PREGABALIN 50 MG CAP PO SCH ×4 (00:43→20:02)
[2016-12-17] MEDS: DOCUSATE-SENNA CONCENTRATE TAB PO PRN ×2 (00:43→12:12)
[2016-12-17] MEDS: NITROGLYCERINE 2 % OINTMENT PACK TOP SCH ×5 (00:43→23:01)
[2016-12-17] MEDS: MORPHINE 2 MG/ML INJECTION IV PRN (01:20)
[2016-12-17] MEDS: REGULAR INSULIN 100 UNITS/ML - 3 ML VIAL SQ SCH ×4 (05:43→20:03)
[2016-12-17] MEDS: SODIUM CHLORIDE 0.9% 3 ML FLUSH FLUSH SCH ×2 (05:52→17:00)
[2016-12-17] MEDS: FUROSEMIDE 40 MG/4 ML VIAL IV SCH ×3 (05:52→23:01)
[2016-12-17 06:35] LABS: BLOOD UREA NITROGEN 22 MG/DL (7-17); CALCIUM 8.9 MG/DL (8.4-10.2); CALCULATED OSMOLALITY 275 MOs/Kg (270-290); CHLORIDE 100 mEq/L (98-107); GLUCOSE 117 MG/DL (70-99); SODIUM LEVEL 141 mEq/L (137-146)
[2016-12-17] MEDS: POTASSIUM CHLORIDE 20 MEQ TAB PO SCH ×2 (07:11→17:00)
[2016-12-17] MEDS: LISINOPRIL 10 MG TAB PO SCH (07:11)
[2016-12-17] MEDS: LEVOTHYROXINE 75 MCG (0.075 MG) TAB PO SCH (07:11)
[2016-12-17] MEDS: CARVEDILOL 6.25 MG TAB PO SCH ×2 (07:14→20:01)
--- NOTE | 2016-12-17 08:17 | DIRPT ---
CLINICAL DATA: CHF . EXAM: PORTABLE CHEST 1 VIEW COMPARISON: 12/16/2016. FINDINGS: PowerPort catheter in stable position. Mediastinum and hilar structures are normal. Cardiomegaly with normal pulmonary vascularity. Bilateral pulmonary infiltrates are present consistent with mild pulmonary edema. No significant interim change. Small pleural effusions cannot be excluded . Surgical clips right axilla. IMPRESSION: 1. Power port catheter stable position. 2. Cardiomegaly with bilateral pulmonary infiltrates and small pleural effusions suggesting congestive heart failure. No interim change from prior exam . Electronically Signed By: Murray Hall On: 12/17/2016 08:15
--- NOTE | 2016-12-17 09:19 | GENMEDPROG ---
Chief Complaint: Diuresed some. However remains significantly congested and short of breath. Still with diffuse rales on exam. Notes Reviewed: Yes Events from last night noted and discussed with Clinical Staff Current Medication List: Reviewed Currently: Reports: Cough, VEGAS, SOB, Chest Pain. Denies: Wheezing, Ambulating DVT Prophylaxis: Yes - Physical Examination Vital Signs and I&O: Last Vital Signs Temp 97.8 F 12/17/16 07:55 Pulse 98 12/17/16 07:55 Resp 18 12/17/16 07:55 BP 129/74 12/17/16 07:55 Pulse Ox 100 12/17/16 07:55 Oxygen Pulse Oxygen Saturation 100 O2 Device Nasal Cannula Oxygen Flow Rate 2 Fraction of Inspired Oxygen ( 35 FIO2) Intake & Output 12/14/16 12/15/16 12/16/16 12/17/16 23:59 23:59 23:59 23:59 Intake Total 144 455 Output Total 2450 400 Balance 144 Patient's weight 92.442 kg 93.758 kg 93.758 kg General: Alert, Oriented x3, Cooperative, Mild distress, Obese, Weakness HEENT: PERRLA, EOMI, Anicteric Sclera, Mucous membr. moist/pink Neck: Full range of motion, Normal Trachea alignment, Normal inspection, No Masses palpable Lymphatics: Normal. negative: Adenopathy Respiratory: Diminished, Rales (lower 2/3 of lungs bilaterally), Tachypnea, Wheezes Cardiovascular: Regular rate and rhythm, Normal S1, Normal S2, Good Pedal Pulses , LE Edema, PMI Not Lateralized GI: Soft, Non tender, No masses Extremities/Musculoskeletal: Normal pulses, Edema (2+), DJD, FROM Skin: Warm,Dry and Intact, No rashes, No breakdown, No significant lesion Neurological: Normal speech, Strength at 5/5 X4 ext, Normal tone, Cranial nerves 3-12 NL, Drowsy Psych/Mental Status: Appropriate, Normal Affect, Cooperative Lab/DI/Studies Reviewed: Laboratory Results - last 24 hr 12/16/16 12/16/16 12/17/16 15:29 19:17 04:35 Sodium 141 Potassium 3.6 Chloride 100 Carbon Dioxide 34 H Anion Gap 11 BUN 22 H Creatinine 0.90 Estimated GFR (MDRD) > 60 Glucose 117 H POC Capillary Glucose 184 H 220 H Calculated Osmolality 275 Calcium 8.9 Magnesium 2.20 Zgw-H-Uaggfrrkulc Pept 911 H 12/17/16 05:13 Sodium Potassium Chloride Carbon Dioxide Anion Gap BUN Creatinine Estimated GFR (MDRD) Glucose POC Capillary Glucose 137 H Calculated Osmolality Calcium Magnesium Zew-D-Dudyvhovyev Pept - Assessment (1) Acute decompensated heart failure Acute I50.9 - HEART FAILURE, UNSPECIFIED Comment/Plan: Diurese some over the last 24 hours. EF is 35-40%. Continue fluid restriction and heart failure order set. Monitor closely. She does feel some better today. (2) Acute respiratory failure with hypoxia Acute J96.01 - ACUTE RESPIRATORY FAILURE WITH HYPOXIA Comment/Plan: Remains severely hypoxic. Still with moderate distress. Continue IV Lasix and diurese. (3) Hypertensive urgency Acute I16.0 - HYPERTENSIVE URGENCY Comment/Plan: Blood pressures are much better. Continue current medications. (4) Chest pain Acute R07.9 - CHEST PAIN, UNSPECIFIED Qualifiers: Chest pain type: chest pain on breathing Ischemic chest pain type: I Qualified Code(s): R07.1 - Chest pain on breathing Comment/Plan: Pain appears more pleuritic worse with deep inspiration and cough. Continue cardiac medications and monitor. Cardiac enzymes have been negative. May need stress testing once she has had a chance to recover from acute event. (5) DMII (diabetes mellitus, type 2) Chronic E11.9 - TYPE 2 DIABETES MELLITUS WITHOUT COMPLICATIONS Qualifiers: Diabetes mellitus complication status: with neurologic complications Diabetes mellitus complication detail: with polyneuropathy Diabetic retinopathy severity: D Proliferative retinopathy type: P Diabetes mellitus macular edema: D Diabetes mellitus assisted insulin use: with dedicated intermodal truck driver use Laterality: L Chronic kidney disease stage: C Qualified Code(s): E11.42 - Type 2 diabetes mellitus with diabetic polyneuropathy; Z79.4 - terminal clerk ( current) use of insulin Comment/Plan: Continue Accu-Cheks and sliding scale insulin. Case Care Discussed with: Patient, Nursing Staff, Physical Therapy, Resource Management, Respiratory Therapy, Hand Candy Molder
--- NOTE | 2016-12-17 15:51 | CAPUEKG ---
[place], [place] Test Date: 2016-12-17 Pat Name: NENA PARIKH Department: Room: 425 Gender: Female Social Services Specialist: DONAL : Requested By: Order Number: Reading MD: Jeffrey Alicia MD Measurements Intervals S[place]er Rate: 105 P: 56 MD: 150 QRS: 37 QRSD: 78 T: -58 QT: 352 QTc: 465 Interpretive Statements Sinus tachycardia Nonspecific T wave abnormality Abnormal ECG Electronically Signed On 12-17-16 15:51:05 EST by Jeffrey Alicia MD [email or web address] [id number]
[2016-12-17] MEDS: GLARGINE INSULIN (LANTUS) 100 UNITS/ML PEN SQ SCH (20:02)
[2016-12-18] MEDS: NITROGLYCERINE 2 % OINTMENT PACK TOP SCH ×4 (05:15→23:12)
[2016-12-18] MEDS: REGULAR INSULIN 100 UNITS/ML - 3 ML VIAL SQ SCH ×4 (05:15→22:16)
[2016-12-18] MEDS: FUROSEMIDE 40 MG/4 ML VIAL IV SCH ×3 (05:16→22:16)
[2016-12-18] MEDS: PREGABALIN 50 MG CAP PO SCH ×3 (05:16→22:15)
[2016-12-18 05:53] LABS: AUTOMATED BASOPHIL 0.5 % (0-2); AUTOMATED EOSINOPHIL 4.5 % (0-5); AUTOMATED LYMPH 22.6 % (17-44); AUTOMATED MONOCYTE 9.7 % (3-10); AUTOMATED NEUTROPHIL 62.7 % (45-76); MPV 8.1 fL (7.4-10.4)
[2016-12-18] MEDS: SODIUM CHLORIDE 0.9% 3 ML FLUSH FLUSH SCH ×2 (06:39→18:09)
[2016-12-18 06:59] LABS: BLOOD UREA NITROGEN 21 MG/DL (7-17); CALCIUM 8.6 MG/DL (8.4-10.2); CALCULATED OSMOLALITY 278 MOs/Kg (270-290); CHLORIDE 100 mEq/L (98-107); GLUCOSE 131 MG/DL (70-99); SODIUM LEVEL 142 mEq/L (137-146)
--- NOTE | 2016-12-18 07:49 | DIRPT ---
CLINICAL DATA: CHF. EXAM: PORTABLE CHEST 1 VIEW COMPARISON: 12/17/2016. FINDINGS: Prior poor catheter stable position. Mediastinum hilar structures are stable. Cardiomegaly with interim partial clearing of bilateral pulmonary infiltrates. Mild residual right base infiltrate. No pleural effusion or pneumothorax . Surgical clips right axilla . IMPRESSION: 1. PowerPort catheter stable position. 2. Cardiomegaly with interim partial clearing of pulmonary infiltrates/edema. Mild residual infiltrate right lung base. Electronically Signed By: Murray Hall On: 12/18/2016 07:47
[2016-12-18] MEDS: POTASSIUM CHLORIDE 20 MEQ TAB PO SCH ×2 (08:36→18:04)
[2016-12-18] MEDS: LISINOPRIL 10 MG TAB PO SCH (08:37)
[2016-12-18] MEDS: CARVEDILOL 6.25 MG TAB PO SCH ×2 (08:37→22:15)
[2016-12-18] MEDS: LEVOTHYROXINE 75 MCG (0.075 MG) TAB PO SCH (08:37)
--- NOTE | 2016-12-18 10:30 | GENMEDPROG ---
Chief Complaint: Less distress today. Still moderate congestion on exam. Chest x-ray does show some clearing of pulmonary edema. Notes Reviewed: Yes Events from last night noted and discussed with Clinical Staff Current Medication List: Reviewed Currently: Reports: Cough, VEGAS, SOB, Chest Pain. Denies: Wheezing, Ambulating DVT Prophylaxis: Yes - Physical Examination Vital Signs and I&O: Last Vital Signs Temp 97.7 F 12/18/16 07:34 Pulse 91 12/18/16 08:00 Resp 17 12/18/16 07:34 BP 108/63 12/18/16 07:34 Pulse Ox 100 12/18/16 08:00 Oxygen Pulse Oxygen Saturation 100 O2 Device Nasal Cannula Oxygen Flow Rate 2 Fraction of Inspired Oxygen ( 35 FIO2) Intake & Output 12/15/16 12/16/16 12/17/16 12/18/16 23:59 23:59 23:59 23:59 Intake Total 144 455 540 Output Total 2450 2800 2600 Balance 144 -4574 -2260 -2600 Patient's weight 92.442 kg 93.758 kg 93.758 kg 93.168 kg General: Alert, Oriented x3, Cooperative, Mild distress, Obese, Weakness HEENT: PERRLA, EOMI, Anicteric Sclera, Mucous membr. moist/pink Neck: Full range of motion, Normal Trachea alignment, Normal inspection, No Masses palpable Lymphatics: Normal. negative: Adenopathy Respiratory: Diminished, Rales (lower 2/3 of lungs bilaterally), Tachypnea, Wheezes Cardiovascular: Regular rate and rhythm, Normal S1, Normal S2, Good Pedal Pulses , LE Edema, PMI Not Lateralized GI: Soft, Non tender, No masses Extremities/Musculoskeletal: Normal pulses, Edema (2+), DJD, FROM Skin: Warm,Dry and Intact, No rashes, No breakdown, No significant lesion Neurological: Normal speech, Strength at 5/5 X4 ext, Normal tone, Cranial nerves 3-12 NL, Drowsy Psych/Mental Status: Appropriate, Normal Affect, Cooperative Lab/DI/Studies Reviewed: Laboratory Results - last 24 hr 12/17/16 12/17/16 12/17/16 11:23 15:25 19:35 WBC RBC Hgb Hct MCV MCH MCHC RDW Plt Count MPV Neut % (Auto) Lymph % (Auto) Patrick % (Auto) Eos % (Auto) Baso % (Auto) Absolute Neuts (auto) Absolute Lymphs (auto) Sodium Potassium Chloride Carbon Dioxide Anion Gap BUN Creatinine Estimated GFR (MDRD) Glucose POC Capillary Glucose 230 H 216 H 212 H Calculated Osmolality Calcium 12/18/16 12/18/16 12/18/16 04:35 04:35 05:14 WBC 5.1 RBC 3.64 L Hgb 9.7 L Hct 29.4 L MCV 81 MCH 26.7 L MCHC 32.9 L RDW 18.1 H Plt Count 218 MPV 8.1 Neut % (Auto) 62.7 Lymph % (Auto) 22.6 Patrick % (Auto) 9.7 Eos % (Auto) 4.5 Baso % (Auto) 0.5 Absolute Neuts (auto) 3.16 Absolute Lymphs (auto) 1.12 Sodium 142 Potassium 3.8 Chloride 100 Carbon Dioxide 31 Anion Gap 15 BUN 21 H Creatinine 0.70 Estimated GFR (MDRD) > 60 Glucose 131 H POC Capillary Glucose 118 H Calculated Osmolality 278 Calcium 8.6 - Assessment (1) Acute decompensated heart failure Acute I50.9 - HEART FAILURE, UNSPECIFIED Comment/Plan: Clinically some improvement today. EF is 35-40%. Continue fluid restriction and heart failure order set. Monitor closely. She is feeling some better today. (2) Acute respiratory failure with hypoxia Acute J96.01 - ACUTE RESPIRATORY FAILURE WITH HYPOXIA Comment/Plan: Remains severely hypoxic. Still with moderate distress. Continue IV Lasix and diurese. (3) Hypertensive urgency Acute I16.0 - HYPERTENSIVE URGENCY Comment/Plan: Blood pressures are much better. Continue current medications. (4) Chest pain Acute R07.9 - CHEST PAIN, UNSPECIFIED Qualifiers: Chest pain type: chest pain on breathing Ischemic chest pain type: I Qualified Code(s): R07.1 - Chest pain on breathing Comment/Plan: Patient is better to today. Continue to monitor. 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 Case Care Discussed with: Patient, Family (Discuss with daughter at length.), Physical Therapy, Resource Management
[2016-12-18 12:04] VITALS: BMI 36.3
[2016-12-18] MEDS: GLARGINE INSULIN (LANTUS) 100 UNITS/ML PEN SQ SCH (22:16)
[2016-12-19] MEDS: PREGABALIN 50 MG CAP PO SCH ×3 (05:06→20:03)
[2016-12-19] MEDS: NITROGLYCERINE 2 % OINTMENT PACK TOP SCH ×4 (05:07→23:29)
[2016-12-19] MEDS: SODIUM CHLORIDE 0.9% 3 ML FLUSH FLUSH SCH ×2 (05:07→18:16)
[2016-12-19] MEDS: FUROSEMIDE 40 MG/4 ML VIAL IV SCH ×3 (05:07→23:29)
[2016-12-19] MEDS: REGULAR INSULIN 100 UNITS/ML - 3 ML VIAL SQ SCH ×4 (06:14→20:03)
--- NOTE | 2016-12-19 08:30 | DIRPT ---
CLINICAL DATA: Follow-up CHF EXAM: PORTABLE CHEST 1 VIEW COMPARISON: 12/18/2016 FINDINGS: There is a donna catheter from the left with tip at SVC level. Chronic cardiomegaly with stable diffuse interstitial coarsening. No focal opacity or pleural effusion. Hyperinflation. IMPRESSION: Stable pulmonary venous congestion. Electronically Signed By: Slick Carpenter M.D. On: 12/19/2016 08:27
[2016-12-19] MEDS: LISINOPRIL 10 MG TAB PO SCH (10:28)
[2016-12-19] MEDS: CARVEDILOL 6.25 MG TAB PO SCH ×2 (10:28→20:02)
[2016-12-19] MEDS: LEVOTHYROXINE 75 MCG (0.075 MG) TAB PO SCH (10:28)
[2016-12-19] MEDS: POTASSIUM CHLORIDE 20 MEQ TAB PO SCH ×2 (10:28→18:15)
--- NOTE | 2016-12-19 14:02 | GENMEDPROG ---
Chief Complaint: Feeling some better. Less congested. Increase activity and ambulate. Notes Reviewed: Yes Events from last night noted and discussed with Clinical Staff Current Medication List: Reviewed Currently: Reports: Cough, VEGAS, SOB, Chest Pain. Denies: Wheezing, Ambulating DVT Prophylaxis: Yes - Physical Examination Vital Signs and I&O: Last Vital Signs Temp 98.2 F 12/19/16 11:02 Pulse 94 12/19/16 11:54 Resp 18 12/19/16 11:02 BP 125/67 12/19/16 11:02 Pulse Ox 97 12/19/16 11:02 Oxygen Pulse Oxygen Saturation 97 O2 Device Nasal Cannula Oxygen Flow Rate 2 Fraction of Inspired Oxygen ( 35 FIO2) Intake & Output 12/16/16 12/17/16 12/18/16 12/19/16 23:59 23:59 23:59 23:59 Intake Total 455 540 480 90 Output Total 2450 2800 4250 1000 Balance -1995 -2260 -3770 -910 Patient's weight 93.758 kg 93.758 kg 93.168 kg 92.714 kg General: Alert, Oriented x3, Cooperative, Mild distress, Obese, Weakness HEENT: PERRLA, EOMI, Anicteric Sclera, Mucous membr. moist/pink Neck: Full range of motion, Normal Trachea alignment, Normal inspection, No Masses palpable Lymphatics: Normal. negative: Adenopathy Respiratory: Diminished, Rales (lower 2/3 of lungs bilaterally), Tachypnea, Wheezes Cardiovascular: Regular rate and rhythm, Normal S1, Normal S2, Good Pedal Pulses , LE Edema, PMI Not Lateralized GI: Soft, Non tender, No masses Extremities/Musculoskeletal: Normal pulses, Edema (2+), DJD, FROM Skin: Warm,Dry and Intact, No rashes, No breakdown, No significant lesion Neurological: Normal speech, Strength at 5/5 X4 ext, Normal tone, Cranial nerves 3-12 NL, Drowsy Psych/Mental Status: Appropriate, Normal Affect, Cooperative Lab/DI/Studies Reviewed: Laboratory Results - last 24 hr 12/18/16 12/18/16 12/19/16 15:27 19:30 05:24 POC Capillary Glucose 255 H 261 H 196 H 12/19/16 11:00 POC Capillary Glucose 254 H - Assessment (1) Acute decompensated heart failure Acute I50.9 - HEART FAILURE, UNSPECIFIED Comment/Plan: Continues to improve. Increase activity and ambulate. Wean oxygen as tolerated. Continue current care and diuresis. Likely home tomorrow if stable (2) Acute respiratory failure with hypoxia Acute J96.01 - ACUTE RESPIRATORY FAILURE WITH HYPOXIA Comment/Plan: Continue to diurese. Wean oxygen as tolerated. Increase activity (3) Hypertensive urgency Acute I16.0 - HYPERTENSIVE URGENCY Comment/Plan: Blood pressures are much better. Continue current medications. (4) Chest pain Acute R07.9 - CHEST PAIN, UNSPECIFIED Qualifiers: Chest pain type: chest pain on breathing Ischemic chest pain type: I Qualified Code(s): R07.1 - Chest pain on breathing Comment/Plan: Patient is better to today. Continue to monitor. (5) DMII (diabetes mellitus, type 2) Chronic E11.9 - TYPE 2 DIABETES MELLITUS WITHOUT COMPLICATIONS Qualifiers: Diabetes mellitus complication status: with neurologic complications Diabetes mellitus complication detail: with polyneuropathy Diabetic retinopathy severity: D Proliferative retinopathy type: P Diabetes mellitus macular edema: D Diabetes mellitus correction insulin use: with correction use Laterality: L Chronic kidney disease stage: C Qualified Code(s): E11.42 - Type 2 diabetes mellitus with diabetic polyneuropathy; Z79.4 - long-term ( current) use of insulin Comment/Plan: Continue Accu-Cheks and sliding scale insulin. Case Care Discussed with: Patient, Nursing Staff, Physical Therapy, Resource Management, Respiratory Therapy, Forensic Audit Expert
[2016-12-19] MEDS: GLARGINE INSULIN (LANTUS) 100 UNITS/ML PEN SQ SCH (20:03)
[2016-12-20] MEDS: FUROSEMIDE 40 MG/4 ML VIAL IV SCH ×3 (06:03→23:15)
[2016-12-20] MEDS: REGULAR INSULIN 100 UNITS/ML - 3 ML VIAL SQ SCH ×4 (06:04→20:27)
[2016-12-20] MEDS: PREGABALIN 50 MG CAP PO SCH ×3 (06:04→20:27)
[2016-12-20] MEDS: NITROGLYCERINE 2 % OINTMENT PACK TOP SCH ×4 (06:04→23:15)
[2016-12-20] MEDS: SODIUM CHLORIDE 0.9% 3 ML FLUSH FLUSH SCH ×2 (06:04→16:31)
[2016-12-20] MEDS: POTASSIUM CHLORIDE 20 MEQ TAB PO SCH ×2 (07:38→16:30)
[2016-12-20] MEDS: ACETAMINOPHEN 325 MG/TAB TABLET PO PRN ×2 (07:49→14:46)
[2016-12-20] MEDS: LEVOTHYROXINE 75 MCG (0.075 MG) TAB PO SCH (07:50)
[2016-12-20] MEDS: CARVEDILOL 6.25 MG TAB PO SCH ×2 (07:50→20:27)
[2016-12-20] MEDS: LISINOPRIL 10 MG TAB PO SCH (07:51)
[2016-12-20] MEDS: DOCUSATE-SENNA CONCENTRATE TAB PO PRN (08:05)
--- NOTE | 2016-12-20 11:43 | GENMEDPROG ---
Chief Complaint: Complains of weakness and dizziness. Still short of breath at times. Oxygenation is much improved and vitals are stabilizing. Notes Reviewed: Yes Events from last night noted and discussed with Clinical Staff Current Medication List: Reviewed Currently: Reports: Cough, VEGAS, SOB, Chest Pain. Denies: Wheezing, Ambulating DVT Prophylaxis: Yes - Physical Examination Vital Signs and I&O: Last Vital Signs Temp 97.7 F 12/20/16 11:06 Pulse 84 12/20/16 11:06 Resp 18 12/20/16 11:06 BP 124/64 12/20/16 11:06 Pulse Ox 96 12/20/16 11:06 Oxygen Pulse Oxygen Saturation 96 O2 Device Room Air Oxygen Flow Rate 2 Fraction of Inspired Oxygen ( 35 FIO2) Intake & Output 12/17/16 12/18/16 12/19/16 12/20/16 23:59 23:59 23:59 23:59 Intake Total 540 480 610 240 Output Total 2800 4250 2150 920 Balance -3679 -3590 -1540 -542 Patient's weight 93.758 kg 93.168 kg 92.714 kg 93.349 kg General: Alert, Oriented x3, Cooperative, Mild distress, Obese, Weakness HEENT: PERRLA, EOMI, Anicteric Sclera, Mucous membr. moist/pink Neck: Full range of motion, Normal Trachea alignment, Normal inspection, No Masses palpable Lymphatics: Normal. negative: Adenopathy Respiratory: Normal - CTA, Diminished Cardiovascular: Regular rate and rhythm, Normal S1, Normal S2, Good Pedal Pulses , LE Edema, PMI Not Lateralized GI: Soft, Non tender, No masses Extremities/Musculoskeletal: Normal pulses, Edema (2+), DJD, FROM Skin: Warm,Dry and Intact, No rashes, No breakdown, No significant lesion Neurological: Normal speech, Strength at 5/5 X4 ext, Normal tone, Cranial nerves 3-12 NL, Drowsy Psych/Mental Status: Appropriate, Normal Affect, Cooperative Lab/DI/Studies Reviewed: Laboratory Results - last 24 hr 12/19/16 12/19/16 12/19/16 11:00 16:54 19:48 POC Capillary Glucose 254 H 238 H 243 H 12/20/16 12/20/16 05:54 11:05 POC Capillary Glucose 248 H 235 H - Assessment (1) Acute decompensated heart failure Acute I50.9 - HEART FAILURE, UNSPECIFIED Comment/Plan: Via assisted living housekeeper. Overall much better. Oxygenation has improved and we have been able to discontinue oxygen this morning. She still feels short of breath at times but likely nearing baseline. She does complain of dizziness and lightheadedness today. Suspect that this is likely due to deconditioning. Increase activity and ambulate. Likely home tomorrow. Known EF of 35-40%. (2) Acute respiratory failure with hypoxia Acute J96.01 - ACUTE RESPIRATORY FAILURE WITH HYPOXIA Comment/Plan: Steadily better. Increase activity and ambulate. (3) Hypertensive urgency Acute I16.0 - HYPERTENSIVE URGENCY Comment/Plan: Blood pressures are much better. Continue current medications. (4) Chest pain Acute R07.9 - CHEST PAIN, UNSPECIFIED Qualifiers: Chest pain type: chest pain on breathing Ischemic chest pain type: I Qualified Code(s): R07.1 - Chest pain on breathing Comment/Plan: Patient is better to today. Continue to monitor. 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 Case Care Discussed with: Patient, Nursing Staff, Physical Therapy, Resource Management, Respiratory Therapy, Soft Work Cigar Machine Operator
[2016-12-20] MEDS ORDERED: DIPHENHYDRAMINE 50 MG/ML VIAL IV ONE (16:15)
[2016-12-20] MEDS: GLARGINE INSULIN (LANTUS) 100 UNITS/ML PEN SQ SCH (20:28)
[2016-12-21] MEDS: NITROGLYCERINE 2 % OINTMENT PACK TOP SCH ×2 (06:31→11:18)
[2016-12-21] MEDS: REGULAR INSULIN 100 UNITS/ML - 3 ML VIAL SQ SCH ×2 (06:31→12:49)
[2016-12-21] MEDS: SODIUM CHLORIDE 0.9% 3 ML FLUSH FLUSH SCH (06:31)
[2016-12-21] MEDS: PREGABALIN 50 MG CAP PO SCH ×2 (06:31→13:16)
[2016-12-21] MEDS: FUROSEMIDE 40 MG/4 ML VIAL IV SCH ×2 (06:31→13:16)
[2016-12-21 07:34] VITALS: BP 130/76; TEMP 98.2
[2016-12-21] MEDS: LISINOPRIL 10 MG TAB PO SCH (07:56)
[2016-12-21] MEDS: POTASSIUM CHLORIDE 20 MEQ TAB PO SCH (07:56)
[2016-12-21] MEDS: LEVOTHYROXINE 75 MCG (0.075 MG) TAB PO SCH (07:56)
[2016-12-21] MEDS: CARVEDILOL 6.25 MG TAB PO SCH (07:56)
[2016-12-21] MEDS: DOCUSATE-SENNA CONCENTRATE TAB PO PRN (08:04)
--- NOTE | 2016-12-21 08:34 | PCM.DCS92 ---
- Final/Secondary Discharge Diagnosis (1) Acute systolic (congestive) heart failure Acute I50.21 - ACUTE SYSTOLIC (CONGESTIVE) HEART FAILURE Present on Admission: Yes Comment: Overall much better. Oxygenation has improved and we have been able to discontinue oxygen this morning. She still feels short of breath at times but likely nearing baseline. She does complain of dizziness and lightheadedness today. Suspect that this is likely due to deconditioning. Increase activity and ambulate. Known EF of 35-40%. (2) Acute respiratory failure with hypoxia Acute J96.01 - ACUTE RESPIRATORY FAILURE WITH HYPOXIA Present on Admission: Yes Comment: Steadily better. Increase activity and ambulate. (3) DMII (diabetes mellitus, type 2) Chronic E11.9 - TYPE 2 DIABETES MELLITUS WITHOUT COMPLICATIONS Present on Admission: Yes with neurologic complications with polyneuropathy D P D with usp use L C E11.42 - Type 2 diabetes mellitus with diabetic polyneuropathy; Z79.4 - [facility] (current) use of insulin Comment: Continue Accu-Cheks and sliding scale insulin. (4) Hypertensive urgency Acute I16.0 - HYPERTENSIVE URGENCY Present on Admission: Yes Comment: Blood pressures are much better. Continue current medications. Discharge Disposition: Discharge w/ Home Health Discharge Condition: Improved Cognitive Discharge Status: Unimpaired Fuctional Discharge Status: Deconditioning, Dyspnea with ambulation Forms: Excuse Note Physician Follow up/Referrals: None,No Provider [Family Provider] - One Week Home Medications / New Prescriptions: New Acetaminophen Tablet [TYLENOL Tablet] 650 mg PO Q6H PRN #60 tablet PRN Reason: Mild Pain Or Fever Above 100.4 Carvedilol [Coreg] 6.25 mg PO BID #60 tablet Isosorbide Mononitrate [Imdur] 30 mg PO DAILY #30 tab Nitroglycerin Sublingual Tab [NTG (NitroStat Sublingual Tab)] 0.4 mg SL PRN PRN #30 tablet PRN Reason: Chest Pain Or Discomfort POTASSIUM CHLORIDE Tablet [K-DUR 20 mEq Tablet*] 20 meq PO BIDWM #60 tab.er.prt Continue Pregabalin [Lyrica] 150 mg PO TID Lisinopril [Prinivil] 10 mg PO DAILY Insulin Glargine [Lantus Pen] 46 units SQ HS #1 pen Insulin Lispro [Humalog] 13 units SQ .TID BEFORE MEALS #1 vial MetFORMIN (Immediate Release) [GLUCOPHAGE Immed Release] 1,000 mg PO BID(TANYA ) #60 tablet Levothyroxine [Synthroid, Levoxyl] 75 mcg PO DAILY Changed Furosemide [Lasix] 40 mg PO BID #60 tablet Discontinued POTASSIUM CHLORIDE Tablet [Klor-Con M20] 20 meq PO DAILY #30 tab Discharge Home Medication List Pregabalin [Lyrica] 150 mg PO TID 05/30/16 [History Confirmed 12/15/16 Last Taken 06/16/16 10:10] Lisinopril [Prinivil] 10 mg PO DAILY 06/15/16 [History Confirmed 12/15/16 Last Taken 12/15/16] Insulin Glargine [Lantus Pen] 46 units SQ HS #1 pen 06/16/16 [Rx Confirmed 12/15 Last Taken 12/14/16] Insulin Lispro [Humalog] 13 units SQ .TID BEFORE MEALS #1 vial 06/16/16 [Rx Confirmed 12/15/16 Last Taken 12/15/16] MetFORMIN (Immediate Release) [GLUCOPHAGE Immed Release] 1,000 mg PO BID(TANYA) # 60 tablet 06/16/16 [Rx Confirmed 12/15/16 Last Taken 12/15/16] Levothyroxine [Synthroid, Levoxyl] 75 mcg PO DAILY 12/15/16 [History Confirmed 12/15/16 Last Taken 12/15/16] Acetaminophen Tablet [TYLENOL Tablet] 650 mg PO Q6H PRN #60 tablet 12/21/16 [Rx Last Taken Unknown] Carvedilol [Coreg] 6.25 mg PO BID #60 tablet 12/21/16 [Rx Last Taken Unknown] Furosemide [Lasix] 40 mg PO BID #60 tablet 12/21/16 [Rx Last Taken Unknown] Isosorbide Mononitrate [Imdur] 30 mg PO DAILY #30 tab 12/21/16 [Rx Last Taken Unknown] Nitroglycerin Sublingual Tab [NTG (NitroStat Sublingual Tab)] 0.4 mg SL PRN PRN #30 tablet 12/21/16 [Rx Last Taken Unknown] POTASSIUM CHLORIDE Tablet [K-DUR 20 mEq Tablet*] 20 meq PO BIDWM #60 tab.er.prt 12/21/16 [Rx Last Taken Unknown] O2 Device: Room Air Diet at Discharge: Heart Healthy, Low Salt, Diabetic, 1800 Calorie Activity: As Tolerated Call Office For: Worsening Symptoms, Fever over 101 F, Pain Uncontrolled By Meds Discontinue use of:: Alcohol, All Types of Tobacco - DC Summary Notes Home Health Need / [facility] Services:: Due to the presence of Diabetic Changes and/or risk of deterioration a skilled Assessment and observation of endocrine status is required for this patient. This assessment to include but not limited to: teaching, training of disease process and symptom management (diet, infection control), safety, S/S of hyper/ hypoglycemia, medication, medication management, and recognizing changes/ decline in status. Blood sugar monitoring signs and symptoms to report to physician household chores. Due to the presence of Cardiac Changes and/or risk of deterioration a skilled Assessment and observation of cardiovascular status is required for this patient. This assessment could include but not limited to teaching, training of disease process and symptom management (diet, infection control, safety) and recognizing changes/decline in status. If appropriate to include education on oxygen use - safety, storage, reordering and need for a fire plan. Pulse Oximetry PRN for S/S respiratory distress. Hospital Course Note:: Discharge summary on patient named NENA LERMA admitted to [facility] on 12/15/16 by Diana Alamo MD. Date of discharge is [12/21/16]. Mrs. Nena Lerma is a 56 year old Hebrew-speaking woman from [place] who is usually cared for by Dr. Beckford. She has a history of diabetes, HTN and congestive heart failure and was recently hospitalized for pneumonia before [place]. She gets most of her care at [facility] in [place]. She reports increasing shortness of breath and swelling in her legs that has been getting worse for about two weeks. She was seen in the ED 4 days ago and treated with a dose of IV Lasix and then increased doses of PO Lasix as an outpatient. However, she failed to improve. She believes that this episode began when she ate something she referred to as bitter-root. (Yam? rutabega?) Presently she is hypoxic on room air, and her chest x-ray is consistent with pulmonary edema. Her legs are swollen up to her knees. She was placed on BiPAP in the ED but she was unable to tolerate it and refused to try it again. She is tolerating the venturi- mask. She was admitted to the telemetry unit for control of her congestive heart failure. An echocardiogram was obtained that revealed a left ventricular ejection fraction of 35%. She has been placed on fluid restriction of 1000 mL daily and received 80 mg of furosemide every 8 hours IV. Her oxygen demand has slowly decreased and she is now tolerating room air and is able to ambulate int the hallway. Her diabetes has been controlled with Lantus and Humalog as well as a diabetic diet. Her blood sugars have ranged from 120- 270 during admission. She has been encouraged to check her sugars frequently at home and avoid sweets. Her home dose of insulin will be sightly higher than what she has been receiving in the hospital. She has also been encouraged to avoid salt on her food. her BNP has dropped from 1610 to 911. Her CXR shows significant improvement. She will be discharged home today, to follow-up with her primary care provider in 1 week. Code: 61604 (>30min.) - Physical Exam Vital Signs: Last Vital Signs Temp 98.2 F 12/21/16 07:34 Pulse 94 12/21/16 07:34 Resp 18 12/21/16 07:34 BP 130/76 12/21/16 07:34 Pulse Ox 95 12/21/16 08:00 Oxygen Pulse Oxygen Saturation 95 O2 Device Room Air Oxygen Flow Rate 2 Fraction of Inspired Oxygen ( 35 FIO2) Constitutional: No apparent distress, Alert Oriented to: Time, Person, Place - HEENT Head: Normal Eye: Normal (PERRL: EOMI) Oropharynx: Normal. negative: Drooling, Exudate, Red Tympanic Membrane: Normal ENT EAC: Normal TMJ: Normal Nose: negative: Bleeding, Congestion, Discharge - Respiratory/Cardiovascular Respiratory: Normal - CTA, Diminished Cardiovascular: Normal - GI Auscultation: Normal Palpation: Normal (soft, obese, no mass or fluid wave, + presacral edema) Tenderness: Non tender Banegas's Sign: Negative Rectal Exam: Deferred, Heme negative stool. negative: Mass - Musculoskeletal Back: Normal, No Palpable Step-off Extremities: Normal. negative: Clubbing, Cyanosis, Edema - Integumentary Skin: Warm, Dry Lymphatics: Normal. negative: Adenopathy - Neurologic Memory Impaired: Normal Motor Function: Normal Cranial Nerve: Normal Cerebellar: Normal Mood Description: Normal, Appropriate Thought: Coherent Perception: Normal
[2016-12-21] MEDS ORDERED: MAGNESIUM HYDROXIDE 30 ML BOTTLE PO ONE (09:38)
[2016-12-21 10:03] VITALS: PULSE 94
== END 2016-12-21 13:45 | disposition home health service (06) | DRG 291 ==
LOC: ED 07:46 → EDINP 10:18 → PCU 10:18
PROVIDERS: ADMIT Family Medicine; ATTEND Hospitalist
PROC: 039C3ZZ Drainage of Left Radial Artery, Percutaneous Approach (ICD-10-PCS; principal; 2016-12-15)
DX: I50.21 Acute systolic (congestive) heart failure (principal); J96.01 Acute respiratory failure with hypoxia; E11.42 Type 2 diabetes mellitus with diabetic polyneuropathy; Z79.4 Long term (current) use of insulin; I16.0 Hypertensive urgency; Z86.711 Personal history of pulmonary embolism; M19.90 Unspecified osteoarthritis, unspecified site; K21.9 Gastro-esophageal reflux disease without esophagitis; Z85.72 Personal history of non-Hodgkin lymphomas; E03.9 Hypothyroidism, unspecified; F41.9 Anxiety disorder, unspecified; Z79.899 Other long term (current) drug therapy; I10 Essential (primary) hypertension
CPT/HCPCS: 36415; 36600; 71010; 80048; 80053; 81001; 82550; 82803; 82962; 83605; 83735; 83880; 84484; 85025; 85027; 85379; 85610; 85730; 87040; 87086; 90656; 93005; 93306; 94660; 96372; 96375; 97162; 99285; J1200; J1940; J2060; J2270; J3490